=== PATIENT | male | born 1945 | race Caucasian/White ===

== ENCOUNTER → 2018-08-15 08:37 | Outpatient (CLI) | payer MEDICARE, BC ==
--- NOTE | ~2018-08-15 | EC ---
PATIENT:GIANCARLO ORTIZ DATE OF SERVICE: 08/15/18 SEX: M MEDICAL RECORD: [id number] DATE OF : [birth year] LOCATION:[facility] AGE OF PATIENT: 73 ADMISSION DATE: 08/15/18 REFERRING PHYSICIAN: INTERPRETING PHYSICIAN: DEDRA DISLA MD ECHOCARDIOGRAM REPORT ECHO CHARGES 4 ECHO COMPLETE Date: 08/15/18 CLINICAL DIAGNOSIS: MITRAL REGURG ECHOCARDIOGRAPHIC MEASUREMENTS (adult normal given) AC root (d.<3.7cm) 3.6 cm LV Septum d (<1.2 cm> 1.3 cm Valve Excursion 1.5 cm LV Septum (systole) 1.6 cm Left Atria (s.<4.0cm> 4.0 cm LVPW d(<1.2cm) 1.3 cm RV (d.<2.3cm) 4.3 cm LVPW (sytole) 1.5 cm LV diastole(<5.6CM) 4.2 cm MV E-F(>70mm/sec) cm LV systole 2.7 cm LVOT Diameter 1.9 cm MV exc.(>10mm) 1.1 cm Est.ejection fraction (50-75%) % DOPPLER: LVIT cm/sec A 91.0 cm/sec E 67.0 cm/sec LA cm/sec RVSP 32 mmHg LVOT 69 cm/sec AOP1/2T m/s Asc. Ao 151 cm/sec RVOT 59 cm/sec RA cm/sec PA 127 cm/sec AV Gradient Peak 9.14 mmHg AV Mean 5.46 mmHg AV Area 2.0 cm MV Gradient Peak 5.20 mmHg MV Mean 1.54 mmHg MV Area cm COMMENTS: Calciner Feeder: Nemesio PINEDO Straddle Bug: 1 Dr. Disla TAPE# PACS Pericardial Effusion N DATE OF SERVICE: 08/15/2018 ECHOCARDIOGRAM DATE OF SERVICE: 08/15/2018 FINDINGS: 1. Left ventricular chamber size is within normal limits. Left ventricular systolic function is normal. Overall ejection fraction estimated at 55%. 2. Left atrium is enlarged at 4.6 cm. Right atrium and right ventricular ECHOCARDIOGRAM REPORT [id number] GIANCARLO ORTIZ chamber sizes are as well mildly dilated. 3. Valvular structures have normal structure and motion. 4. Doppler interrogation reveals mild aortic insufficiency, mild mitral regurgitation, mild tricuspid regurgitation, no other valvular insufficiency or stenosis, and pulmonary systolic pressure is normal estimated at 32 mmHg. 5. No evidence of pericardial effusion or left ventricular thrombus. TRANSINT:[id number] Voice Confirmation ID: [id number] DOCUMENT ID: [id number] DEDRA DISLA MD CC: [id number] DICTATION DATE: 08/15/18 1449 RECONCILIATION ACCOUNTANT: 08/15/18 1524 REG [facility] [address] [id number]
== END | disposition home or self-care (01) ==
LOC: D.HCCARDIO 08:37
PROVIDERS: ATTEND Internal Medicine Interventional Cardiology
DX: I34.0 Nonrheumatic mitral (valve) insufficiency (principal)